=== PATIENT | male | born 1995 | race Caucasian/White ===

== ENCOUNTER 2016-06-02 16:40 | Emergency (ER) | payer MEDICAID ==
[~2016-06-02] VITALS: Ht 190.5 cm; Wt 65.0 kg
[~2016-06-02 16:40] MED LIST: FLUD0.1T PO; LORA-446 PO; PRED5TAB PO
[2016-06-02 16:45] VITALS: BP 139/95
== END 2016-06-02 18:08 | disposition home or self-care (01) ==
LOC: ED 18:00
DX: R07.89 Other chest pain (principal); Q67.6 Pectus excavatum; F41.9 Anxiety disorder, unspecified; I25.2 Old myocardial infarction; Z79.899 Other long term (current) drug therapy
CPT/HCPCS: 71020; 93005; 99284

== ENCOUNTER 2018-05-18 12:20 | Emergency (ER) | payer MEDICAID ==
[~2018-05-18] VITALS: Ht 193 cm; Wt 74.8 kg
[2018-05-18 12:23] VITALS: BP 146/88
== END 2018-05-18 13:12 | disposition home or self-care (01) ==
LOC: ED 13:00
DX: L03.012 Cellulitis of left finger (principal); I25.2 Old myocardial infarction
CPT/HCPCS: 99283